=== PATIENT | female | born 1990 | race Caucasian/White ===

== ENCOUNTER 2020-11-05 01:15 | Emergency (ER) | payer OTHER, SELFPAY ==
--- NOTE | 2020-11-05 02:16 | ED_ITS ---
HPI - General Adult General: Stated complaint: accidental needle stick Time Seen by Provider: 11/05/20 01:26 History of Present Illness: HPI narrative: Stuck right index finger with the needle after had been used on a patient. MD complaint: Needlestick Location: upper extremity Review of Systems Narrative: Needlestick to right index finger Physical Exam Skin: NARRATIVE SKIN EXAM: No active bleeding right index finger needlestick area no redness or swelling. MDM - General Adult MDM Narrative: Medical decision making narrative: Hospital needlestick protocol policy started. Patient offered medications patient declined taking medications. Discharge Plan Discharge Patient Disposition: Home Clinical Impression: Needlestick injury accident Condition: Stable Discharge Orders: Discharge ED (Routine); Ordered 11/05/20 Ordered By: Alexander Todd Referrals: Jonathan Castelan MD [Primary Care Provider] - Discharge Activity: Resume usual activity Activity Restrictions/Additional Instructions: Follow-up with occupational health as directed by the needlestick protocol [facility] Coding Level of Care Code ED Manager Pe for Karina Galarza
[2020-11-05 02:27] VITALS: BP 110/70; PULSE 87; RESP 16; TEMP 36.7; O2SAT 96; BMI 24.9
[2020-11-05 03:35] LABS: Hepatitis A Antibody IgM Non-Reactive (Nonreactive); Hepatitis B Core IgM Non-Reactive (Nonreactive); Hepatitis B Surface Antigen Non-Reactive (Nonreactive); Hepatitis C Virus Antibody Non-Reactive (Nonreactive)
[2020-11-05 03:36] LABS: HIV 1 & 2 Antibody Non-Reactive (Non-Reactiv); HIV 1 & 2 Antigen Non-Reactive (Non-Reactiv)
== END 2020-11-05 02:52 | disposition home or self-care (01) ==
PROVIDERS: Emergency Provider Nurse Practitioner Family; PCP Family Medicine
DX: S61.230A Puncture wound without foreign body of right index finger without damage to nail, initial encounter (principal); W46.1XXA Contact with contaminated hypodermic needle, initial encounter
CPT/HCPCS: 80074; 87806; 99281